=== PATIENT | female | born 1940 | race Caucasian/White ===

== ENCOUNTER 2018-01-29 13:49 | Day surgery (SDC) | payer OTHER ==
[2018-01-26 13:59] LABS: ALANINE AMINOTRANSFERASE 16 U/L (12-78); ALBUMIN 3.9 g/dL (3.4-5.0); ANION GAP 10 mmol/L (5-15); CALCIUM 9.1 mg/dL (8.5-10.1); CHLORIDE 110 mmol/L (98-107); CREATININE 1.05 mg/dL (0.55-1.02)
[2018-01-26 14:02] LABS: ALKALINE PHOSPHATASE 56 U/L (45-117); BILIRUBIN,TOTAL 0.6 mg/dL (0.2-1.0); TOTAL PROTEIN 7.4 g/dL (6.4-8.2)
[~2018-01-29] VITALS: Ht 157.5 cm; Wt 51.7 kg
[~2018-01-29 13:49] MED LIST: AMLO2.5T3 PO; ASPI-515 PO; CALCIUM PO; DICL100G19 TP; HYDR200T72 PO; LOSA25TA6 PO; MULT-516 PO; SULF500T36 PO; VERA40TA PO; VITAMIN D PO
[2018-01-29 14:15] VITALS: BP 147/78
[2018-01-29] MEDS ORDERED: LACTATED RINGERS 1,000 ML IV SCH (14:19)
[2018-01-29] MEDS ORDERED: MIDAZOLAM 1 MG/ML, 2ML ONE (14:59)
[2018-01-29] MEDS ORDERED: FENTANYL PF 250 MCG/5ML ONE (15:00)
[2018-01-29] MEDS ORDERED: PROPOFOL 10 MG/ML, 20ML ONE (15:01)
[2018-01-29] MEDS ORDERED: WATER-INJECTION,STERILE 10 ML IV ONE (15:01)
[2018-01-29] MEDS ORDERED: LIDOCAINE-MPF 2% ,5ML ONE (15:01)
[2018-01-29] MEDS ORDERED: CEFAZOLIN 1,000 MG ONE (15:01)
[2018-01-29] MEDS ORDERED: DEXAMETHASONE 4 MG/ML, 1ML ONE ×2 (15:03)
[2018-01-29] MEDS ORDERED: BUPIVACAINE/PF 0.5% ONE (15:17)
[2018-01-29] MEDS ORDERED: FENTANYL PF 100 MCG/2ML IV PRN (16:00)
[2018-01-29] MEDS ORDERED: OXYcodone 5 MG/5 ML ORAL.SOL UDC PO PRN (16:00)
[2018-01-29] MEDS ORDERED: MEPERIDINE/PF 25MG/0.5ML IVPush PRN (16:00)
[2018-01-29] MEDS ORDERED: LABETALOL 5MG/ML, 20ML IV PRN (16:00)
[2018-01-29] MEDS ORDERED: HYDROmorphone 1 MG/ML, 1ML IV PRN (16:00)
[2018-01-29] MEDS ORDERED: hydrALAzine 20 MG/ML, 1ML IV PRN (16:00)
[2018-01-29] MEDS ORDERED: ONDANSETRON ODT 8 MG PO PRN (16:00)
[2018-01-29] MEDS ORDERED: HALOPERIDOL 5 MG/ML IV PRN (16:00)
[2018-01-29] MEDS ORDERED: ACETAMINOPHEN 325 MG TABLET PO PRN (16:00)
[2018-01-29] MEDS ORDERED: ONDANSETRON 2MG/ML, 2ML ONE ×2 (16:20)
[2018-01-29] MEDS ORDERED: OXYcodone 5 MG/5 ML ORAL.SOL UDC ONE (17:11)
== END 2018-01-29 18:05 | disposition home or self-care (01) ==
LOC: OUT 13:49
PROVIDERS: ATTEND Orthopaedic Surgery
DX: S66.318A Strain of extensor muscle, fascia and tendon of other finger at wrist and hand level, initial encounter (principal); T84.84XA Pain due to internal orthopedic prosthetic devices, implants and grafts, initial encounter; I10 Essential (primary) hypertension; Z87.39 Personal history of other diseases of the musculoskeletal system and connective tissue; Z72.89 Other problems related to lifestyle; Z87.891 Personal history of nicotine dependence; X58.XXXA Exposure to other specified factors, initial encounter; Y93.89 Activity, other specified; Y99.8 Other external cause status
CPT/HCPCS: 20680; 25310; 36415; 73100; 76000; 80053; 93005; J0690; J1100; J2250; J2405; J2704; J3010; J3490; J7120

== ENCOUNTER → 2018-08-17 | Outpatient (CLI) | payer MEDICARE ==
[~2018-08-17] MED LIST changes: -AMLO2.5T3 PO; +AMLO2.5T5 PO; +LOSA25TA25 PO; -LOSA25TA6 PO
== END | disposition home or self-care (01) ==
LOC: CFH 07:37
PROVIDERS: ATTEND Nurse Practitioner Family
DX: Z12.31 Encounter for screening mammogram for malignant neoplasm of breast (principal)
CPT/HCPCS: 77067